=== PATIENT | female | born 1950 | race Caucasian/White ===

== ENCOUNTER → 2020-07-30 | Outpatient (CLI) | payer MEDICARE | LOC: OPSV 11:47 | DX: M06.9 Rheumatoid arthritis, unspecified (principal) | CPT/HCPCS: 96365; 96375; J1602 ==

== ENCOUNTER → 2020-09-25 | Outpatient (CLI) | payer MEDICARE ==
[~2020-09-25] VITALS: Ht 167.6 cm; Wt 67.1 kg
== END ==
LOC: OPSV 12:00
DX: M06.9 Rheumatoid arthritis, unspecified (principal)
CPT/HCPCS: 96365; 96375; J1602; J2920

== ENCOUNTER → 2020-11-20 | Outpatient (CLI) | payer MEDICARE ==
[~2020-11-20] VITALS: Ht 167.6 cm; Wt 67.1 kg
== END ==
LOC: OPSV 10:57
DX: M06.9 Rheumatoid arthritis, unspecified (principal)
CPT/HCPCS: 96365; 96375; J1602; J2920

== ENCOUNTER → 2021-01-15 | Outpatient (CLI) | payer MEDICARE ==
[~2021-01-15] VITALS: Ht 167.6 cm; Wt 67.1 kg
== END ==
LOC: OPSV 11:00
DX: M06.9 Rheumatoid arthritis, unspecified (principal)
CPT/HCPCS: 96365; 96375; J1602; J2920

== ENCOUNTER → 2021-03-19 | Outpatient (CLI) | payer MEDICARE ==
[~2021-03-19] VITALS: Ht 167.6 cm; Wt 67.1 kg
== END ==
LOC: OPSV 03-12 11:00
DX: M06.9 Rheumatoid arthritis, unspecified (principal)
CPT/HCPCS: 96365; 96375; J1602; J2920

== ENCOUNTER → 2021-05-14 | Outpatient (CLI) | payer MEDICARE ==
[~2021-05-14] VITALS: Ht 167.6 cm; Wt 67.1 kg
== END ==
LOC: OPSV 11:00
DX: M06.9 Rheumatoid arthritis, unspecified (principal)
CPT/HCPCS: 96365; 96375; J1602; J2920

== ENCOUNTER → 2021-06-09 | Outpatient (CLI) | payer MEDICARE | LOC: KOH-I 09:41 | DX: G57.61 Lesion of plantar nerve, right lower limb (principal); M06.9 Rheumatoid arthritis, unspecified; M19.071 Primary osteoarthritis, right ankle and foot; M25.471 Effusion, right ankle | CPT/HCPCS: 73718 ==

== ENCOUNTER → 2021-07-09 | Outpatient (CLI) | payer MEDICARE ==
[~2021-07-09] VITALS: Ht 167.6 cm; Wt 67.1 kg
== END ==
LOC: OPSV 10:58
DX: M06.9 Rheumatoid arthritis, unspecified (principal)
CPT/HCPCS: 96365; 96375; J1602; J2920